=== PATIENT | male | born 1940 | race Caucasian/White ===

== ENCOUNTER → 2020-07-07 | Outpatient (CLI) | payer MEDICARE, BC ==
[~2020-07-07] MED LIST: IMDUR ER TAB 3030 MG PO
== END ==
LOC: KOH-I 11:30
DX: N18.9 Chronic kidney disease, unspecified (principal)
CPT/HCPCS: 36415; 76775; 80053; 81001; 82043; 82570; 84156

== ENCOUNTER → 2020-08-30 | Outpatient (CLI) | payer MEDICARE, BC | LOC: KOH-I 12:00 | DX: R41.0 Disorientation, unspecified (principal); R44.3 Hallucinations, unspecified | CPT/HCPCS: 70450 ==

== ENCOUNTER → 2020-09-05 | Outpatient (CLI) | payer MEDICARE, BC | LOC: ECHO 07:55 | DX: I35.9 Nonrheumatic aortic valve disorder, unspecified (principal); I49.5 Sick sinus syndrome | CPT/HCPCS: ECHO; 93306 ==